=== PATIENT | female | born 1985 | race Caucasian/White ===

== ENCOUNTER 2016-09-02 18:23 | Emergency (ER) | payer OTHER ==
[~2016-09-02] VITALS: Ht 157.5 cm; Wt 86.5 kg
[~2016-09-02 18:23] MED LIST: FLUO40CA8 PO; IBUP-1459 PO; SPIR50TA2 PO; TRET15GE TOP; [UNRECOGNIZED DRUG - OTHER] TOP
[2016-09-02 18:30] VITALS: TEMP 36.8; Ht 157.5 cm; Wt 86.5 kg
[2016-09-02] MEDS ORDERED: IBUPROFEN 600 MG TAB PO STA (18:55)
--- NOTE | 2016-09-02 19:34 | DIAGNOSTIC IMAGING REPORT ---
RIGHT FOOT 3 VIEWS CLINICAL HISTORY: Right foot injury. FINDINGS: 3 views of the right foot are obtained. No prior studies are available for comparison at the time of dictation. The skeletal structures are well mineralized. No fracture is seen. The joint spaces of the foot are well-maintained. Mild lateral soft tissue edema is noted. IMPRESSION: Mild lateral soft tissue swelling with no radiographic evidence of acute fracture. Electronically signed by: Dada Ward M.D. 09/02/2016 7:32 PM Dictated Date/Time: 09/02/2016 7:31 PM
--- NOTE | 2016-09-02 19:38 | EMERGENCY ROOM VISIT NOTE ---
ED Visit Note First contact with patient: 18:35 CHIEF COMPLAINT: Right foot injury 2 hours ago HISTORY OF PRESENT INJURY: Patient is a 30-year-old white female who presents to emergency department for evaluation of right foot pain. She states about 2 hours ago she was getting out of the vehicle, when she rolled her right foot and ankle. She reports hearing a sound lashed she landed. She notes pain, swelling and bruising in the dorsal lateral aspect of the left foot and states that she is unable to bear weight. She rates her pain a 5/10. She has not taken any medications, nor performed any interventions for her symptoms. She denies any ankle or knee pain. No numbness or weakness. REVIEW OF SYSTEMS: Review of systems as per HPI. All other systems reviewed were negative. At least 6 systems reviewed. PMH: Electronic medical records are reviewed and summarized as above/below. See Problem List. SOCIAL HISTORY: The patient lives at home with her family. Former smoker. PHYSICAL EXAM: Vital Signs: Reviewed Nurse's notes. GENERAL: Alert, oriented and coherent, not in acute distress. Ankle/Foot: Affected lateral ankle not swollen but there is ecchymosis, tenderness and swelling over the dorsolateral aspect of the right foot. Range of motion limited secondary to pain. No deformity. The skin is intact. EMERGENCY DEPARTMENT COURSE: X-rays of the right foot did not demonstrate any acute bony abnormality. Patient was wrapped with an yaron wrap, placed in a postoperative shoe and issued crutches and instructed on nonweight bearing gait. She declined analgesia. Differential diagnoses includes foot for his ankle fracture, sprain, dislocation, among others. RIGHT FOOT 3 VIEWS CLINICAL HISTORY: Right foot injury. FINDINGS: 3 views of the right foot are obtained. No prior studies are available for comparison at the time of dictation. The skeletal structures are well mineralized. No fracture is seen. The joint spaces of the foot are well-maintained. Mild lateral soft tissue edema is noted. IMPRESSION: Mild lateral soft tissue swelling with no radiographic evidence of acute fracture. Problem List Medical Problems: (1) 34 weeks with possible ROM Status: Resolved (2) Acute effusion of both middle ears Status: Resolved (3) Labor established Status: Resolved Surgical Problems: (1) H/O section Status: Resolved Current/Historical Medications No Active Prescriptions or Reported Meds Allergies Coded Allergies: No Known Allergies (Unverified , 06/21/14) Vital Signs Date Time Temp Pulse Resp B/P Pulse Ox O2 Delivery O2 Flow Rate FiO2 09/02/16 20:24 61 18 124/74 95 09/02/16 18:30 36.8 78 20 129/81 96 Room Air Medications Administered Medications (Trade) Dose Ordered Sig/Robert Route Start Time Stop Time Status Last Admin Dose Admin Ibuprofen (Motrin Tab) 600 mg NOW STAT PO 09/02/16 18:55 09/02/16 18:56 DC 09/02/16 19:14 600 MG Departure Information Impression Primary Impression: Right foot sprain Prescriptions No Active Prescriptions or Reported Meds Referrals Mellisa Reyez CRNP (PCP) Patient Instructions [facility] Additional Instructions Ibuprofen(Motrin, Advil) may be used for fever or pain. Use 600mg every six hours as needed. Take with food. Avoid using more than 2400mg in a 24 hour period. Do not use 2400mg per day for more than three consecutive days without physician direction. Prolonged inappropriate use can lead to stomach upset or ulcers. This medication can be taken if you need to drive, work, or perform activities which may be dangerous when taking narcotic pain medication. (AND/OR) Acetaminophen(Tylenol) may be used for fever or pain. Use 1000mg every six hours as needed. Avoid using more than 3000mg in a 24 hour period. This medication can be taken if you need to drive, work, or perform activities which may be dangerous when taking narcotic pain medication. Ice compresses for 20 minutes at a time four times daily for 2-3 days. Use the postoperative shoe and crutches as instructed. Rest and elevate your injury. Continue current medications. Return to the ER immediately for any numbness, tingling, severe pain, extreme swelling in the extremity or as needed. Followup with your family doctor or orthopedic surgery if no improvement in 5-7 days.
[2016-09-02 20:24] VITALS: BP 124/74; PULSE 61; O2SAT 95
== END 2016-09-02 20:27 | disposition home or self-care (01) ==
LOC: C.EDB 18:25 → C.EDD 20:27
DX: S93.601A Unspecified sprain of right foot, initial encounter (principal); X58.XXXA Exposure to other specified factors, initial encounter; Z87.891 Personal history of nicotine dependence

== ENCOUNTER → 2017-01-28 | Outpatient (CLI) | payer BC | END | disposition home or self-care (01) | LOC: C.LABSPEC 17:47 | PROVIDERS: ATTEND Physician Assistant | DX: N94.9 Unspecified condition associated with female genital organs and menstrual cycle (principal) ==

== ENCOUNTER → 2017-01-28 | Outpatient (CLI) | payer BC | END | disposition home or self-care (01) | LOC: C.PAPS 09:51 | PROVIDERS: ATTEND Physician Assistant | DX: Z01.411 Encounter for gynecological examination (general) (routine) with abnormal findings (principal); R87.610 Atypical squamous cells of undetermined significance on cytologic smear of cervix (ASC-US) ==

== ENCOUNTER → 2017-02-22 | Outpatient (CLI) | payer BC | END | disposition home or self-care (01) | LOC: C.PATHSPEC 17:51 | PROVIDERS: ATTEND Obstetrics & Gynecology | DX: N87.0 Mild cervical dysplasia (principal); A63.0 Anogenital (venereal) warts; N72 Inflammatory disease of cervix uteri; B97.7 Papillomavirus as the cause of diseases classified elsewhere ==

== ENCOUNTER 2021-03-08 07:30 | Inpatient (IN) ==
--- NOTE | 2021-04-03 10:32 | Anesthesiology Consultation ---
Date of Service April 03, 2021 Assessment & Plan (1) Encounter for pre-operative examination: Chart Review Chart Review: data entry coordinator initiated Per nursing assessment 04/03/21, patient denies any recent travel. Wears mask in public. No known Covid positive contacts or Covid related symptoms. Pt oliva known Covid infection in the past 90 days. Preop Covid test 03/31/21= negative. Pt is vaccinated for Covid but patient's is not aware and does not believe in Covid vaccine- patient requests not to mention Covid vaccincation status in front of . Pt seen by cardiology 12/27/20= pt has hx of previous child having congenital heart disease. Pt's daughter (now age six) has hx of PFO vs secundum ASD with an aneurysmal appearance of atrial septum, pulmonary valve stenosis and aortic valve insufficiency, and atrial ectopy. Has not needed specific treatment or surgical intervention. Pt's previous son has hx of Prader-Willi syndrome without known congenital heart disease. ECHO done in office- appears structurally normal. Follow up as needed. "I do not see any contraindication from cardiac standpoint to her delivering at [facility] as she is currently planning. The pediatric cardiology team at [facility] could be consulted at any time should there be any concern about the baby's cardiovascular status." History Surgery Operation Date: 04/04/21 07:30 Proposed Procedures p Section in LD - Adrianne Chow MD, FACOG Operation Date: 04/21/21 07:30 Proposed Procedures p Section in LD Delivery of Baby Through Abdominal Incision - Saray Horne MD Height/Weight Height: 5 ft 3 in Weight: 98.43 kg Allergies Allergy/AdvReac Type Severity Reaction Status Date / Time bupropion [From Wellbutrin] AdvReac Intermediate mood Verified 04/03/21 09:46 changes Medications Home Medications Medication Instructions Recorded Confirmed Last Taken azelaic acid 15 % topical foam 1 applic TOPICAL HS 03/02/20 04/03/21 03/29/21 21:00 buspirone 15 mg tablet 22.5 mg PO BID 03/02/20 04/03/21 03/30/21 09:00 certolizumab pegol (Cimzia) 200 mg SUBCUT UD 10/04/03/21 01/31/21 08:00 clindamycin phosphate 1 % topical 1 applic TOPICAL QAM 03/02/20 04/03/21 03/29/21 09:00 foam hydroxyzine HCl 25 mg tablet 25 mg PO HS PRN 03/02/20 04/03/21 03/29/21 21:00 methylphenidate HCl 54 mg 72 mg PO QAM 03/02/20 04/03/21 03/30/21 08:00 tablet,extended release 24 hr (Concerta) prenat.vits,fox,oor-xpbe-obwtv 1 tab PO QAM 03/02/20 04/03/21 03/29/21 20:00 esomeprazole magnesium 20 mg 20 mg PO QAM 03/30/21 04/03/21 03/30/21 09:00 capsule,delayed release (Nexium) Past Medical History Medical History ADHD (attention deficit hyperactivity disorder) Anxiety Cervical intraepithelial neoplasia (CHRISTOPHER) GERD (gastroesophageal reflux disease) Hypertension affecting in third trimester IBS (irritable bowel syndrome) Preeclampsia Psoriasiform dermatitis Past Family History Family History Father Hypertension Other Heart disease No family history of adverse response to anesthesia Denies family history of Ovarian cancer Prostate cancer Breast cancer Colorectal cancer Past Surgical History Surgical History H/O wisdom tooth extraction History of delivery History of myringotomy BMT Social History Smoking Status: Former smoker Do You Dip or Chew Tobacco: No Smoking End Date: 2014 Hx Alcohol Use: No Hx Substance Use: No Lab Results Anesthesia Preop Results Results Anesthesia Widget: WBC 8.24 K/uL (4.8-10.8) 03/30/21 Hgb 12.2 g/dL (12.0-16.0) 03/30/21 Hct 37.1 % (37-47) 03/30/21 Plt 214 K/uL (130-400) 03/30/21 Na 140 mmol/L (136-145) 03/30/21 K 3.2 mmol/L (3.5-5.1) L 03/30/21 Cl 110 mmol/L (98-107) H 03/30/21 CO2 22 mmol/L (21-32) 03/30/21 BUN 5 mg/dl (7-18) L 03/30/21 Creat 0.55 mg/dl (0.6-1.2) L 03/30/21 Glucose Level 119 mg/dl (70-99) H 03/30/21
--- NOTE | 2021-04-03 14:37 | History & Physical Report ---
Date of Service April 03, 2021 Assessment & Plan (1) Preeclampsia: (2) with 37 or more completed weeks gestation: (3) Previous delivery affecting : Plan: Given PET, plan repeat c/s. Declines sterilization. Plans IUD. r/b/se of c/s discussed with the patient including bleeding, transfusion, infection, poor wound healing, damage to surrounding structures, need for further surgery, bloot clot, PE, injury to baby, risk of anesthesia. Consent reviewed and signed. Questions asked and answered. Planned for tomorrow am. History of Present Illness Chief Complaint: here for c/s Primary Care Provider: Ccoo Avendano DO Patient is a 35yowf with iup at 37 1/7 weeks who presents for repeat c/s for preeclampsia without severe symptoms. Has had previous c/s x 2. She notes good FM. NO labor sx. She has had several days of low grade hanks. Has had elevated pressures over the last 2-3 weeks with evaluation in labor and delivery. in previous x2--planned repeat C/S RESCHEDULED FOR 04/04/[address] MCLEOD AND DR. WELLS ASSIST Covid test negative. Preeclampsia *Weekly BP chk's with Doc *Weekly CBC, LFTs *Weekly NSTs @32wks and twice wkly @36wks *Growth US Q4wks *If IUGR: EDILBERTO w/UAD's weekly *Deliver 37-38wks *(If Gestational HTN<28wks bring to [facility]) Daughter with pulmonary valve stenosis and asd-- echo scheduled in Dec trace PV insuff, tr pericardial effusion--f/u after delivery Son with Luigi Willi--isolated, probable spontaneous deletion will do extended panorama for PW - Normal extended panel Panorama New FOB AMA Weekly NST's @36 weeks. colpo 04/08--javed 1, repeat pap in one year-NEEDS PAP AT [facility] Flu vaccine received 02/15/21 OC COVID vaccine #1 02/21 - DO NOT DISCUSS THIS AROUND FOB Gestational Proteinuria (03/29/21) OB Labs: Blood Type O Positive 09/14/20 Antibody Screen NEGATIVE 09/14/20 Hemoglobin 12.2 g/dL (12.0-16.0) 03/30/21 Hematocrit 37.1 % (37-47) 03/30/21 Mean Corpuscular Volume 96.1 fL (80-100) 03/30/21 Platelet Count 214 K/uL (130-400) 03/30/21 Rubella IgG Antibody Immune (Immune) 09/14/20 Rapid Plasma Reagin Nonreactive (Nonreactive) 09/14/20 Hepatitis B Surface Antigen Neg (Neg) 09/14/20 HIV (1&2) Ab and P24 Ag, 4th Gener Prelim Pos (Neg) A 09/14/20 Glucose 1 Hour 50 gm Load 133 mg/dl (70-130) H 02/01/21 Maternal Serum Alpha Fetoprotein 30.4 ng/mL 11/09/20 OB Optional Labs: Chlamydia trachomatis RNA NOT DETECTED (NOT DETECTED) 09/14/20 Neisseria gonorrhoeae RNA NOT DETECTED (NOT DETECTED) 09/14/20 Alpha Fetoprotein Triple Screen SEE NOTE 11/09/20 Labs Reviewed: HIV confirm - Negative cfDNA Normal cf/sma--neg, akh Allergies Allergy/AdvReac Type Severity Reaction Status Date / Time bupropion [From Wellbutrin] AdvReac Intermediate mood Verified 04/03/21 09:46 changes Home Medications Medication Instructions Recorded Confirmed Type azelaic acid 15 % topical foam 1 applic TOPICAL HS 03/02/20 04/03/21 History buspirone 15 mg tablet 22.5 mg PO BID 03/02/20 04/03/21 History certolizumab pegol (Cimzia) 200 mg SUBCUT UD 03/02/20 04/03/21 History clindamycin phosphate 1 % topical 1 applic TOPICAL QAM 03/02/20 04/03/21 History foam hydroxyzine HCl 25 mg tablet 25 mg PO HS PRN 03/02/20 04/03/21 History methylphenidate HCl 54 mg 72 mg PO QAM 03/02/20 04/03/21 History tablet,extended release 24 hr (Concerta) prenat.vits,fox,sdc-xpdi-sifru 1 tab PO QAM 03/02/20 04/03/21 History esomeprazole magnesium 20 mg 20 mg PO QAM 03/30/21 04/03/21 History capsule,delayed release (Nexium) Patient History Medical History ADHD (attention deficit hyperactivity disorder) Anxiety Cervical intraepithelial neoplasia (JAVED) GERD (gastroesophageal reflux disease) Hypertension affecting in third trimester IBS (irritable bowel syndrome) Preeclampsia Psoriasiform dermatitis Surgical History H/O wisdom tooth extraction History of delivery History of myringotomy BMT Family History Father Hypertension Other Heart disease No family history of adverse response to anesthesia Denies family history of Ovarian cancer Prostate cancer Breast cancer Colorectal cancer Social History Smoking Status: Former smoker Second Hand Exposure: No; Hx Alcohol Use: No Hx Substance Use: No Preferred Language: Danish Communication Ability: Effective Sander Hand Required: No Beliefs That Will Affect Care: None marital status: marital status details: Nakul Calle [phone]) [phone] Current Living Situation: Spouse and Family Current Living Situation Comment: and kids. He has two children but they dont live with them full vaishali current occupational status: employed current occupation: [employer] Feels Safe at Home: Yes Assistive Devices: Contacts and Glasses OB History Del. Date GA wks Lbr Lgth wt Sex Type del Anes Place Del Prov ? Comment 06/14/10 39 6-3 M [facility] [address] [place] No Non reassuring heart rate tracing during labor 06/21/14 39 7-6 F [facility] [address] [place] No PHYSICIAN PRACTICE MANAGER History noncontributory Physical Exam Constitutional: WD/WN, vitals as above Cardiovascular: Extremities: + edema (tr); no calf tenderness Gastrointestinal (Abdomen): soft, gravid, nt Coding Level of Care Code None Diagnoses Preeclampsia O14.90 with 37 or more completed weeks gestation Previous delivery affecting O34.219
[2021-04-04] MEDS ORDERED: ceFAZolin 3,000 MG in DEXTROSE 5% 50 ML IV SCH (06:00)
[2021-04-04] MEDS ORDERED: LACTATED RINGER'S 1,000 ML IV SCH (06:00)
[2021-04-04] MEDS ORDERED: CITRIC ACID/SODIUM CITRATE 15 ML UDC PO SCH (06:00)
[2021-04-04 06:17] LABS: Basophils # (auto) 0.01 K/uL (0-0.2); Basophils % (auto) 0.1 %; Eosinophils # (auto) 0.08 K/uL (0-0.5); Hematocrit (blood only) 36.7 % (37-47); Hemoglobin 12.1 g/dL (12.0-16.0); Immature Granulocytes # (auto) 0.02 K/uL (0.00-0.02); Immature Granulocytes % (auto) 0.2 %; Lymphocytes # (auto) 1.83 K/uL (1.2-3.4); Lymphocytes % (auto) 21.9 %; Mean Corpuscular Hemoglobin 31.8 pg (25-34); Mean Corpuscular Volume 96.3 fL (80-100); Mean Platelet Volume 11.2 fL (7.4-10.4); Monocytes # (auto) 0.89 K/uL (0.11-0.59); Monocytes % (auto) 10.6 %; Neutrophils # (auto) 5.53 K/uL (1.4-6.5); Neutrophils % (auto) 66.2 %; Platelet Count 218 K/uL (130-400); RDW Coefficient of Variation 14.4 % (11.5-14.5); RDW Standard Deviation 50.7 fL (36.4-46.3); Red Blood Count 3.81 M/uL (4.2-5.4); White Blood Count 8.36 K/uL (4.8-10.8)
[2021-04-04] MEDS ORDERED: NALOXONE HCL 0.4 MG/1 ML VIAL/CARP IV PRN (08:46)
[2021-04-04] MEDS ORDERED: ONDANSETRON INJ 2 MG/ML 2 ML VIAL IV PRN (08:46)
[2021-04-04] MEDS ORDERED: diphenhydrAMINE 50 MG/ML VIAL IV PRN (08:46)
[2021-04-04] MEDS ORDERED: NALBUPHINE HCL INJ 10 MG/ML AMP IV PRN (08:46)
[2021-04-04] MEDS ORDERED: MoRPHine SULFATE PF 1 MG/ML 10 ML AMP/VIAL INT SPINAL ONE (08:46)
[2021-04-04] MEDS ORDERED: MoRPHine SULFATE 2 MG/ML CARP IV PRN (08:46)
[2021-04-04] MEDS ORDERED: LACTATED RINGER'S 500 ML IV PRN (08:46)
[2021-04-04] MEDS ORDERED: ePHEDrine sulfate 50 MG/ML AMP IV PRN (08:46)
[2021-04-04] MEDS ORDERED: NALOXONE HCL 0.08 MG in SYRINGE 1.8 ML IV PRN (08:46)
[2021-04-04] MEDS ORDERED: NALOXONE HCL 1 MG in SODIUM CHLORIDE 0.9% 1000ML 1,000 ML IV PRN (08:46)
[2021-04-04] MEDS ORDERED: fentaNYL citrate 100 MCG/2 ML VIAL ONE (08:53)
[2021-04-04] MEDS ORDERED: OXYTOCIN 10 UNITS/ML VIAL ONE (08:53)
[2021-04-04] MEDS ORDERED: MoRPHine SULFATE PF 1 MG/ML 10 ML AMP/VIAL ONE (08:53)
[2021-04-04] MEDS ORDERED: SODIUM CHLORIDE 0.9% 1000ML 1,000 ML IV SCH (09:00)
[2021-04-04] MEDS ORDERED: NO NARCOTICS OR SEDATIVES SCH (09:00)
[2021-04-04] MEDS ORDERED: DC INTRASPINAL MORPHINE SCH (09:00)
[2021-04-04] MEDS ORDERED: ePHEDrine sulfate 50 MG/ML SYR ONE (10:03)
[2021-04-04] MEDS ORDERED: PHENYLEPHRINE 100MCG/ML 5ML SYR ONE (10:03)
--- NOTE | 2021-04-04 10:40 | Operative Report ---
PG Post Operative Report Pre & Post Diagnosis Operation Date: 04/04/21 07:30 Pre-Op Diagnosis: Previous Section x 2; Pt desires Repeat Section. Preeclampsia without severe features Post-Op Diagnosis: Previous Section x 2; Pt desires Repeat Section. Preeclampsia without severe features. Operation Date: 04/21/21 07:30 <No data on this case meets the specified criteria> I identified the patient and participated in the time-out.: Yes Procedure Operation Date: 04/04/21 07:30 Actual Procedures p Repeat lower transverse Section in LD, Live Male at 1012 in OR # 3. - Adrianne Chow MD, FACOG Operation Date: 04/21/21 07:30 <No data on this case meets the specified criteria> Surgeon Adrianne Chow MD, FACOG [employer] Attendant Dr. Shankar, PGY1 Estimated Blood Loss 700 Findings Consistent with Post-Op Diagnosis viable male, cephalic, apgars 9/9. nl appearing uterus/tubes/ovs Fluids 1600 Specimens placenta Drains caro Anesthesia Type Spinal Complications none Disposition Accompanied Patient To Recovery: No Disposition: L&D Indications Patient is a 35yowf at 37 weeks with pet without severe features. previous c/s x 2 Description of Procedure The patient was taken to the operating room where she was identified verbally and by bracelet. She was seated on the operating table where a spinal anesthetic was placed by anesthesia. She was then placed in the supine position with a leftward tilt. A Caro catheter was placed sterilely. the patient was prepped and draped in a normal standard fashion. the anesthetic was tested and found to be adequate. A time-out was held, identifying correct patient, procedure, positioning and preoperative antibiotics. There were no concerns. A Pfannenstiel skin incision was made with a knife and taken down to the underlying layer of fascia with the knife and Bovie electrocautery. Bleeding was attended to with the Bovie. The fascia was incised in the midline with the knife and taken out laterally with scissors. The superior edge of the fascial incision was grasped, elevated and the underlying layer of rectus muscle was taken off bluntly and with scissors. In a similar fashion, the inferior edge of the fascial incision was grasped, elevated and the underlying layer of rectus muscle was taken off bluntly and with scissors. The muscles were bluntly in the midline. The peritoneum was entered bluntly. The incision was then stretched. The bladder blade was placed. The vesicouterine peritoneum was identified, entered with scissors and taken out laterally with scissors. The bladder flap was created digitally A hysterotomy incision was scored with a knife and the incision was stretched superiorly and inferiorly with the scalp treatment operator's fingers. We also used bandage scissors to enlarge the incision. The operators hand was placed into the incision and the head was delivered atraumatically. No nuchal cord. The nose and mouth were bulb suctioned. the rest of the was then delivered without difficulty. The nose and mouth were again bulb suctioned. The cord was clamped and cut and the infant was then handed off to the awaiting special certificate dictator for drying and attention. Cord blood and segment were obtained. The placenta was Manually extracted. The uterus was exteriorized and cleared of all clot and debris with moistened laparotomy sponges. The hysterotomy incision was repaired in two layers, the first in a running locked layer, the second in an imbricating layer. Hemostasis was noted to be good. Posterior cul-de-sac was irrigated and cleared of all clot and debris. The hysterotomy incision was again inspected and found to be hemostatic. One figure of 8 suture needed at the left edge. the uterus was reinteriorized. Hysterotomy incision was again inspected and found to be hemostatic. Rectus muscles were reapproximated with several interrupted stitches of 0 Vicryl. The fascia was then reapproximated with 0 Vicryl starting at the edges and meeting in the midline. The subcuticular tissues were copiously irrigated and bleeding was attended to with cautery. The skin was then closed with 4-0 Vicryl in a subcuticular fashion. All sponge , lap and needle counts correct x 2. Patient taken to recovery in stable condition. I attest to the content of the Intraoperative Record and any orders documented therein. Any exceptions are noted below. OB Procedure Charges 45617
[2021-04-04] MEDS ORDERED: BENZOCAINE 20% AER SPR 82.5 GM CAN EXT PRN (11:12)
[2021-04-04] MEDS ORDERED: HYDROCORTISONE ACETATE 25 MG SUPP PR PRN (11:12)
[2021-04-04] MEDS ORDERED: DIPHTHERIA/TETANUS/PERTUSSIS 0.5 ML SYR/VIAL IM ONE (11:12)
[2021-04-04] MEDS ORDERED: SUPERCREAM 0.870% 15 GM JAR EXT PRN (11:12)
[2021-04-04] MEDS: OXYTOCIN 20 UNITS in LACTATED RINGER'S 1,000 ML IV SCH ×2 (12:51→21:07)
[2021-04-04] MEDS: KETOROLAC 30 MG/ML VIAL IV PRN ×2 (13:39→18:37)
--- NOTE | 2021-04-04 13:48 | Anesthesiology Progress Note ---
Date of Service April 04, 2021 Anesthesia Post Procedure Vital Signs Vital Signs: Temp Pulse Resp BP Pulse Ox 04/04/21 13:33 73 100 04/04/21 13:28 77 100 04/04/21 13:23 79 100 04/04/21 13:19 74 122/74 04/04/21 13:18 75 100 04/04/21 13:13 73 100 04/04/21 13:08 88 100 04/04/21 13:03 74 100 04/04/21 12:58 79 100 04/04/21 12:53 75 100 04/04/21 12:49 78 138/72 04/04/21 12:48 80 100 04/04/21 12:43 81 100 04/04/21 12:38 77 100 04/04/21 12:33 74 100 04/04/21 12:28 83 100 04/04/21 12:23 77 100 04/04/21 12:19 78 134/81 04/04/21 12:18 84 100 04/04/21 12:13 79 99 04/04/21 12:08 79 100 04/04/21 12:03 77 99 04/04/21 11:58 103 H 98 04/04/21 11:53 74 99 04/04/21 11:49 72 128/76 04/04/21 11:48 36.5 C 70 20 98 04/04/21 11:43 78 98 04/04/21 11:40 95 H 156/70 H 04/04/21 11:39 85 173/72 H 04/04/21 11:38 81 20 97 04/04/21 11:33 83 99 04/04/21 11:28 82 20 142/80 H 99 04/04/21 11:23 97 H 93 04/04/21 11:22 94 H 92 04/04/21 11:18 93 H 20 134/73 98 04/04/21 11:13 86 97 04/04/21 11:08 96 H 20 130/71 99 04/04/21 11:03 94 H 91 04/04/21 10:58 89 20 126/72 98 04/04/21 10:53 94 H 100 04/04/21 10:48 36.4 C L 86 20 99 04/04/21 10:47 88 127/68 04/04/21 05:58 36.8 C 18 04/04/21 05:57 72 135/85 Transfer of Care Handoff Completed per policy Notes Mental Status: alert / awake / arousable and participated in evaluation Patient Amnestic to Procedure: Yes Nausea / Vomiting: adequately controlled Pain: adequately controlled Airway Patency, RR, SpO2: stable & adequate BP & HR: stable & adequate Hydration State: stable & adequate Anesthetic Complications: no major complications apparent and Pt Satisfied with anesthetic care
[2021-04-04] MEDS: SIMETHICONE 80 MG CHEW PO SCH ×3 (17:14→21:08)
[2021-04-05] MEDS: KETOROLAC 30 MG/ML VIAL IV PRN (00:01)
[2021-04-05] MEDS ORDERED: diphenhydrAMINE 50 MG/ML VIAL IV PRN (02:46)
[2021-04-05] MEDS ORDERED: diphenhydrAMINE Capsule 25 MG CAP PO PRN (02:46)
[2021-04-05] MEDS ORDERED: MEPERIDINE HCL 50 MG/ML CARP IV PRN (02:46)
[2021-04-05] MEDS ORDERED: KETOROLAC 30 MG/ML VIAL IV PRN (02:47)
[2021-04-05] MEDS: oxyCODONE/ACETAMINOPHEN 5mg/325mg TAB PO PRN ×4 (03:48→22:16)
[2021-04-05] MEDS: IBUPROFEN 600 MG TAB PO PRN ×5 (03:48→22:15)
[2021-04-05 06:01] LABS: Basophils # (auto) 0.02 K/uL (0-0.2); Basophils % (auto) 0.2 %; Eosinophils # (auto) 0.03 K/uL (0-0.5); Eosinophils % (auto) 0.3 %; Hematocrit (blood only) 32.7 % (37-47); Hemoglobin 10.8 g/dL (12.0-16.0); Immature Granulocytes # (auto) 0.02 K/uL (0.00-0.02); Immature Granulocytes % (auto) 0.2 %; Lymphocytes # (auto) 1.25 K/uL (1.2-3.4); Lymphocytes % (auto) 11.6 %; Mean Corpuscular Hemoglobin 31.9 pg (25-34); Mean Corpuscular Volume 96.5 fL (80-100); Mean Platelet Volume 11.4 fL (7.4-10.4); Monocytes % (auto) 7.4 %; Neutrophils # (auto) 8.64 K/uL (1.4-6.5); Neutrophils % (auto) 80.3 %; Platelet Count 208 K/uL (130-400); RDW Coefficient of Variation 14.4 % (11.5-14.5); RDW Standard Deviation 50.6 fL (36.4-46.3); Red Blood Count 3.39 M/uL (4.2-5.4); White Blood Count 10.76 K/uL (4.8-10.8)
--- NOTE | 2021-04-05 06:12 | Obstetrical Progress Note ---
Date of Service <Ranulfo Shankar DO - Last Filed: 04/05/21 07:37> April 05, 2021 Assessment & Plan <Ranulfo Shankar DO - Last Filed: 04/05/21 07:37> (1) Encounter for care and examination after delivery: 35 yo post op day 1 from , doing well. -Continue routine post care. - vital signs reviewed, BP mildly elevated during the night, patient asymptomatic. Will continue to monitor BP throughout the day. (Tmax 36.9) -Blood type O+, GBS +, Rubella Immune -Encourage ambulation, monitor and control pain with Motrin, tylenol PRN, resume regular diet, monitor lochia. -encourage breast feeding -hemoglobin 10.8 <Adrianne Chow MD, FACOG - Last Filed: 04/05/21 07:41> (1) Encounter for care and examination after delivery: Subjective <Ranulfo Shankar DO - Last Filed: 04/05/21 07:37> Ambulation: ambulating normally Voiding: no voiding problems Passing Gas:: Yes Diet Tolerance:: regular diet Lochia:: Small Feeding Type:: breast feeding Current Pain Level(1-10): 0 Review of Systems Denies fever, chills, sweats Denies shortness of breath, difficulty breathing, chest pain, palpitations, heena st pressure. Denies breast pain. Denies dysuria. Denies headache or changes in vision Physical Exam <Ranulfo Shankar DO - Last Filed: 04/05/21 07:37> General: Alert, oriented. No acute distress. Cardiac: Regular rate and rhythm, no murmurs/rubs/gallops. Respiratory: Clear to auscultation bilaterally a/p, no wheezes/rales/rhonchi. No increased work of breathing. Symmetrical chest rise. No respiratory distress. Abdomen: Soft, nontender, nondistended. Bowel sounds present. Uterus: Uterine fundus firm, palpable [] cm below umbilicus. Surgical scar clean and healing well. Lower Extremities: No lower extremity edema or swelling. No deep calf pain. Priya's negative bilaterally Results & Data ([facility]) <Ranulfo Shankar DO - Last Filed: 04/05/21 07:37> Vital Signs (Past 12 Hours) Vital Signs Temp Pulse Resp BP Pulse Ox 04/05/21 03:30 36.8 C 75 18 158/98 H 04/05/21 02:30 18 93 04/05/21 01:30 18 91 04/05/21 00:30 18 91 04/04/21 23:50 36.9 C 79 18 155/95 H 97 04/04/21 23:30 18 95 04/04/21 22:30 18 95 04/04/21 21:36 18 94 04/04/21 20:20 36.7 C 74 18 145/83 H 95 04/04/21 19:15 18 94 04/04/21 18:11 16 99 <Adrianne Chow MD, FACOG - Last Filed: 04/05/21 07:41> Co-Signing Physician Notes Resident Physician Supervision Note: I interviewed and examined the patient. Discussed with Dr. Shankar and agree with findings and plan as documented in the note. Any exceptions or clarifications are listed here: Patient doing well. pod 1. routine care. bps are borderline with a couple 150s/90s. No s/s worsening pet and will continue to monitor closely. FF?nt at u. Documented By: Adrianne Chow MD, FACOG Resident Activity Tracking <Ranulfo Shankar DO - Last Filed: 04/05/21 07:37> Resident Involvement: Resident Care Provided Care Provided: OB Delivery
[2021-04-05 06:17] LABS: Polychromasia 1+
[2021-04-05] MEDS: FERROUS SULFATE 325 MG TAB PO SCH (08:20)
[2021-04-05] MEDS: SIMETHICONE 80 MG CHEW PO SCH ×4 (08:20→20:36)
[2021-04-05] MEDS: PRENATAL VITAMIN 1 TAB PO SCH (08:20)
[2021-04-05] MEDS ORDERED: MAGNESIUM HYDROXIDE SUSP 30 ML UDC PO PRN (20:00)
[2021-04-05] MEDS ORDERED: SENNA 8.6 MG TAB PO PRN (20:00)
[2021-04-05] MEDS: DOCUSATE SODIUM 100 MG CAP PO SCH (20:36)
[2021-04-06] MEDS: IBUPROFEN 600 MG TAB PO PRN ×2 (02:01→05:56)
[2021-04-06] MEDS: oxyCODONE/ACETAMINOPHEN 5mg/325mg TAB PO PRN ×2 (02:02→05:55)
--- NOTE | 2021-04-06 06:14 | Obstetrical Progress Note ---
Date of Service <Ranulfo Shankar DO - Last Filed: 04/06/21 07:05> April 06, 2021 Assessment & Plan <Ranulfo Shankar DO - Last Filed: 04/06/21 07:05> (1) Encounter for care and examination after delivery: 35 yo post op day 2 from , doing well. -Continue routine post care. - vital signs reviewed, BP mildly elevated during the night, patient asymptomatic. Will continue to monitor BP throughout the day. (Tmax 36.9) -Blood type O+, GBS +, Rubella Immune -Encourage ambulation. Recommended to control pain with Motrin, tylenol PRN, resume regular diet, monitor lochia. -encourage breast feeding -hemoglobin 10.7 -Discussed discharge with patient. Patient will follow up with outpatient OB in 1 week for BP check and 6 weeks for check. <Dariana Stapleton MD, FACOG - Last Filed: 04/06/21 07:07> (1) Encounter for care and examination after delivery: Subjective <Ranulfo Shankar DO - Last Filed: 04/06/21 07:05> Ambulation: ambulating normally Voiding: no voiding problems Passing Gas:: Yes Diet Tolerance:: regular diet Lochia:: Small Feeding Type:: breast feeding Current Pain Level(1-10): 0 Review of Systems Denies fever, chills, sweats Denies shortness of breath, difficulty breathing, chest pain, palpitations, chest pressure. Denies breast pain. Denies dysuria. Denies headache or changes in vision Physical Exam <Ranulfo Shankar DO - Last Filed: 04/06/21 07:05> General: Alert, oriented. No acute distress. Cardiac: Regular rate and rhythm, no murmurs/rubs/gallops. Respiratory: Clear to auscultation bilaterally a/p, no wheezes/rales/rhonchi. No increased work of breathing. Symmetrical chest rise. No respiratory distress. Abdomen: Soft, nontender, nondistended. Bowel sounds present. Uterus: Uterine fundus firm, palpable 2 cm below umbilicus. Surgical scar clean and healing well. Lower Extremities: No lower extremity edema or swelling. No deep calf pain. Priya's negative bilaterally Results & Data ([facility]) <Ranulfo Shankar DO - Last Filed: 04/06/21 07:05> Vital Signs (Past 12 Hours) Vital Signs Temp Pulse Resp BP Pulse Ox 04/06/21 03:55 36.7 C 72 16 136/91 04/06/21 00:10 36.5 C 75 16 126/87 95 04/05/21 20:00 36.6 C 74 16 136/86 96 <Dariana Stapleton MD, FACOG - Last Filed: 04/06/21 07:07> Co-Signing Physician Notes Resident Physician Supervision Note: I was present with Dr. Shankar during the history and exam. I discussed the case with the resident and agree with the findings and plan as documented in the note. Any exceptions or clarifications are listed here: [None] Documented By: Dariana Stapleton MD, FACOG Resident Activity Tracking <Ranulfo Shankar DO - Last Filed: 04/06/21 07:05> Resident Involvement: Resident Care Provided Care Provided: OB Delivery
[2021-04-06 06:16] LABS: Hemoglobin 10.7 g/dL (12.0-16.0)
[2021-04-06] MEDS: PRENATAL VITAMIN 1 TAB PO SCH (08:24)
[2021-04-06] MEDS: SIMETHICONE 80 MG CHEW PO SCH (08:24)
[2021-04-06] MEDS: FERROUS SULFATE 325 MG TAB PO SCH (08:24)
[2021-04-06] MEDS: DOCUSATE SODIUM 100 MG CAP PO SCH (08:24)
[2021-04-06] MEDS ORDERED: bisacodyL 5 MG TABEC PO SCH (20:00)
--- NOTE | 2021-04-07 21:27 | Discharge Summary (DS) ---
DATE OF ADMISSION: 04/04/2021 DATE OF DISCHARGE: 04/06/2021 ADMISSION DIAGNOSES: 1. Intrauterine at 37-1/7 weeks. 2. Preeclampsia without severe features. 3. History of previous section x2. 4. Advanced maternal age. DISCHARGE DIAGNOSES: 1. Intrauterine at 37-1/7 weeks. 2. Preeclampsia without severe features. 3. History of previous section x2. 4. Advanced maternal age. PROCEDURE: Repeat lower transverse section. HISTORY OF PRESENT ILLNESS: The patient is a 35-year-old 3, para 2-0-0-2 with intrauterine p regnancy at 37-1/7 weeks who presents for repeat for preeclampsia without severe symptoms. Has had a previous x2. She notes good movement, no labor symptoms. She has had sev eral days of low-grade headache and had elevated pressures over the past 2-3 weeks with evaluation in labor and delivery and the development of a diagnosis of preeclampsia. She has a daughter with pulm onary valve stenosis and ASD. This baby had a echo showing trace PV insufficiency and trace pe ricardial effusion with followup planned for after delivery. Her son has Prader-Willi syndrome. Kristy zuluaga was isolated with a probable spontaneous deletion. She had an extended panorama for Prader-Willi, which was normal. She has had advanced maternal age. She had a colposcopy for an abnormal Pap smear in this showing visually CHRISTOPHER 1 requiring a repeat Pap . For the rest of the pat ient's detailed history and physical, please see her history and physical. ASSESSMENT: This is a at 37-1/7 weeks with 2 previous sections and preeclampsia w ithout severe features, who presents for repeat. HOSPITAL COURSE: The patient underwent a repeat lower transverse section without difficulty . Estimated blood loss was 700 mL. Findings; viable male in cephalic presentation, Apgars of 9 and 9. Normal uterus, tubes and ovaries were noted bilaterally. The patient's course was uncomplicated. She tolerated regular diet, ambulated without dif ficulty, voided after the removal of her Ren catheter and felt well. She had some mildly elevated blood pressures throughout her stay, but nothing in the severe range. Her hemoglobin on discharge wa s 10.7. She was discharged home to follow up in 1 week for a blood pressure check and in 6 weeks for a check. Preeclampsia signs and symptoms were reviewed with the patient. Job ID: [id number]
== END 2021-04-06 09:41 | disposition home or self-care (01) | DRG 788 ==
LOC: 4S1 04-04 05:35 → PREOBSVTOIN 04-04 05:35 → 4S2 04-04 14:28 → EDSTATUS 04-21 07:30